=== PATIENT | male | born 1970 | race Caucasian/White ===

== ENCOUNTER → 2017-06-19 | Outpatient (CLI) | payer BC ==
[~2017-06-19] MED LIST: OPTIRAY 320 IV PRN
[2017-06-19 16:09] LABS: ISTAT CREATININE 0.8 mg/dl (0.6-1.3); ISTAT HEMOGLOBIN 16.3 g/dl (14.0-18.0); ISTAT IONIZED CALCIUM 1.17 mmol/l (1.12-1.32)
--- NOTE | 2017-06-19 23:35 | DIAGNOSTIC IMAGING REPORT ---
CT OF THE ABDOMEN AND PELVIS WITH AND WITHOUT CONTRAST RENAL PROTOCOL CLINICAL HISTORY: Renal lesion. Renal infarct. COMPARISON STUDY: CT of the abdomen and pelvis May 06, 2016 and May 30, 2016. TECHNIQUE: Initially, axial unenhanced images through the abdomen and pelvis were obtained. Portal venous phase imaging of the abdomen was performed following intravenous injection of 116 cc Optiray 320 IV. Finally, 5 minute delayed phase imaging of the abdomen and pelvis was performed. A dose lowering technique was utilized adhering to the principles of ALARA. CT DOSE: 2307.37 mGycm FINDINGS: No renal, ureteral or bladder calculi are present. There is no hydronephrosis or hydroureter. No upper tract urothelial lesions are identified. Note is again made of volume loss with cortical calcification involving the lower pole of the left kidney. Note is made of a 4.8 x 3.1 cm nonenhancing wedge-shaped focus within the mid to lower pole of the left kidney. This is similar in size to a CT of May 30, 2016. A 7 mm hypodense right renal lesion is too small to characterize but is likely benign. Fatty infiltration of the liver is noted. The spleen, adrenal glands and pancreas are normal. There is no evidence for a bowel obstruction. The appendix is normal. No lesions are identified within the bladder although the nondependent aspect the bladder is unopacified. No suspicious osseous lesions are present. IMPRESSION: 1. No significant change in the nonenhancing 4.8 x 3.1 cm wedge-shaped left renal focus since exam of May 30, 2016. Associated mild volume loss and cortical calcification. The appearance favors an old renal infarct although a benign cystic lesion could appear similar. No solid renal lesions. 2. No urinary calculi or hydronephrosis. 3. Fatty liver. Electronically signed by: Josue Browning M.D. 06/19/2017 11:34 PM Dictated Date/Time: 06/19/2017 5:18 PM
== END | disposition home or self-care (01) ==
LOC: C.CTS 15:03
PROVIDERS: ATTEND Urology
DX: N28.9 Disorder of kidney and ureter, unspecified (principal); K76.0 Fatty (change of) liver, not elsewhere classified

== ENCOUNTER 2018-11-08 07:58 | Observation (INO) ==
--- NOTE | 2018-10-31 16:13 | Anesthesiology Consultation ---
Date of Service October 31, 2018 Assessment & Plan (1) Encounter for pre-operative examination: Plan: EKG AM DOS BSG AM DOS Chart Review Chart Review: Acceptable Risk for Surgery and Patient NOT seen in Pre Admission Testing History Surgery Operation Date: 11/08/18 09:50 Proposed Procedures p L5-S1 Discectomy - Bear Jara DO Height/Weight Height: 5 ft 9 in Weight: 117.934 kg Allergies Allergy/AdvReac Type Severity Reaction Status Date / Time metformin AdvReac Mild Diarrhea Verified 10/31/18 08:11 Medications Home Medications Medication Instructions Recorded Confirmed Last Taken amlodipine 5 mg PO QAM 10/23/18 10/31/18 Unknown cholecalciferol (vitamin D3) 2,000 unit PO QAM 10/23/18 10/31/18 Unknown [Vitamin D3] empagliflozin [Jardiance] 10 mg PO QAM 10/23/18 10/31/18 Unknown glimepiride 4 mg PO QAM 10/23/18 10/31/18 Unknown lisinopril 10 mg PO QAM 10/23/18 10/31/18 Unknown semaglutide [Ozempic] 0.5 mg SUBCUT WK 10/23/18 10/31/18 Unknown omega [id number] oil 1 cap PO QAM 10/31/18 10/31/18 Unknown turmeric root extract 500 mg PO QAM 10/31/18 10/31/18 Unknown Past Medical History Medical History Back pain of lumbosacral region with sciatica radiates to left leg Diabetes History of anal fissures History of skin cancer basal cell on face - Hypertension Kidney dysfunction states was told had left kidney renal infarction and decreased function; Found when s/s of kidney stones which did not have. Obesity Renal infarction LEFT. Per urology 07/05/17, 'no progression...essentially unchanged in 1 year...minimally symptomatic' Past Family History Family History Grandmother (Paternal) Family history of diabetes mellitus Past Surgical History Surgical History History of tonsillectomy Hx of eye surgery left eye corneal issue Social History Smoking Status: Never smoker Hx Alcohol Use: Yes Alcohol type: beer, wine and hard liquor alcohol intake frequency: a few times a month Hx Substance Use: No Testing Laboratory Results Laboratory Tests 10/30/18 10/30/18 10/30/18 14:12 14:12 14:12 WBC 7.53 Hgb 17.4 Hct 50.4 Plt Count 185 PT 10.1 INR 1.0 APTT 26.3 Sodium 138 Potassium 3.7 Chloride 104 Carbon Dioxide 26 BUN 12 Creatinine 0.92 Glucose 120 H
--- NOTE | 2018-11-07 11:45 | History and Physical Report ---
DATE OF ADMISSION: 11/08/2018 CHIEF COMPLAINT: Back and lower extremity difficulty, disc herniation lumbar spine, increasing pain, increasing neurological deficit, failure of conservative measures. Essentially incapacitated. PAST MEDICAL HISTORY: Obesity, hypertension, high cholesterol, chickenpox. PAST SURGICAL HISTORY: Tonsillectomy. ALLERGIES: Negative. FAMILY HISTORY: Stroke. SOCIAL HISTORY: He is , 2 children, 2 alcoholic drinks daily. No tobacco. Active lifestyle. REVIEW OF SYSTEMS: Twelve system review is negative for fevers, sweats, chills. Ear, nose and throat negative. Denies chest pain, palpitations. Denies asthma, wheezing, shortness of breath. Denies nausea, vomiting. There is joint pain, weakness and stiffness. MEDICATIONS: Lisinopril and a medication for diabetes mellitus. PHYSICAL EXAMINATION: GENERAL: He is 5' 9", 270. He is in distress. He has back and lower extremity difficulty. VITAL SIGNS: Blood pressure 140/80, pulse 80, respiration 16. HEENT: Pupils react to light and accommodation. Ear, nose and throat clear. CARDIAC: Normal S1, S2, no ectopy, no skipped beats. LUNGS: Clear. ABDOMEN: Soft, nontender, bowel sounds present. NEUROLOGIC: He is alert, oriented and cooperative. Skin is intact. Vascular structures intact. He has significant pain with straight leg raising. He has pain with percussion. He has decreased Achilles reflex. IMAGES: Demonstrated disc herniation, lumbar spine. PLAN: Lumbar spine discectomy L5-S1.
[~2018-11-08 07:58] MED LIST changes: +CEFAZOLIN 2000MG 2,000 MG/15 ML SYR IV SCH; -OPTIRAY 320 IV PRN; +SODIUM CHLORIDE 0.9% 1000ML IV SCH
[2018-11-08] MEDS: LR 500ML BOLUS, THEN 15ML/HR IV SCH ×4 (08:57→14:10)
[2018-11-08] MEDS ORDERED: VANCOMYCIN HCL 1000MG/20ML VIAL ONE (10:07)
[2018-11-08] MEDS ORDERED: THROMBIN FOR SOLN 20000 UNIT KIT ONE (10:07)
[2018-11-08] MEDS ORDERED: GELATIN SPONGE SZ 100 ONE (10:07)
[2018-11-08] MEDS ORDERED: BACITRACIN INJ 50,000 UNIT VIAL ONE (10:08)
[2018-11-08] MEDS ORDERED: PROPOFOL IV EMULSION 10 MG/ML 20 ML VIAL IV ONE (10:10)
[2018-11-08] MEDS ORDERED: LIDOCAINE HCL 2% 2 ML VIAL/AMP(20MG/ML) INFIL ONE (10:10)
[2018-11-08] MEDS ORDERED: NEOSTIGMINE METHYLSULFATE 5 MG/5 ML SYR ONE (10:10)
[2018-11-08] MEDS ORDERED: DEXAMETHASONE SOD INJ 4 MG/ML VIAL ONE (10:10)
[2018-11-08] MEDS ORDERED: ROCURONIUM BROMIDE 10 MG/ML 5 ML VIAL ONE (10:10)
[2018-11-08] MEDS ORDERED: ONDANSETRON INJ 2 MG/ML 2 ML VIAL ONE (10:10)
[2018-11-08] MEDS ORDERED: GLYCOPYRROLATE 0.2 MG/ML VIAL ONE (10:10)
[2018-11-08] MEDS ORDERED: MIDAZOLAM HCL 1 MG/ML 2ML VIAL ONE (10:10)
[2018-11-08] MEDS ORDERED: fentaNYL citrate 100 MCG/2 ML VIAL ONE ×2 (10:11→11:09)
[2018-11-08] MEDS ORDERED: BUPIVACAINE/EPINEPHRINE 0.5% MPF 1:200,000 30 ML VIAL ONE (10:12)
--- NOTE | 2018-11-08 10:26 | History & Physical Bridge Note ---
Date of Service November 08, 2018 History & Physical Bridge Note I have examined the patient, reviewed the History & Physical and in the interval since the performance of the History & Physical I have noted the following changes of clinical significance: no changes noted
[2018-11-08] MEDS ORDERED: ATROPINE SULFATE 0.1 MG/ML 10ML SYR IV PRN (10:30)
[2018-11-08] MEDS ORDERED: HYDROmorphone INJ 2 MG/ML SYR/VIAL IV PRN (10:30)
[2018-11-08] MEDS ORDERED: ePHEDrine sulfate 50 MG/ML AMP IV PRN (10:30)
[2018-11-08] MEDS ORDERED: HYDROmorphone INJ 2 MG/ML SYR/VIAL ONE (11:29)
--- NOTE | 2018-11-08 11:38 | Fluoroscopy Report ---
FL spine 1V any level CLINICAL HISTORY: L5-S1 DISCECTOMY COMPARISON STUDY: Outside conventional radiographic study dated 10/19/2018 FLUOROSCOPY TIME: 2 seconds. NUMBER OF FLUOROSCOPIC IMAGES: 1 FINDINGS: A single fluoroscopic spot film reveals surgical instruments at the L5-S1 level posteriorly . IMPRESSION: Surgical instruments at the L5-S1 level posteriorly Electronically signed by: Andres Gold M.D. 11/08/2018 11:37 AM
--- NOTE | 2018-11-08 12:03 | Post Operative Brief Note ---
Immediate Post Op Note v1 Date of Surgery November 08, 2018 Pre & Post Diagnosis Operation Date: 11/08/18 10:10 Pre-Op Diagnosis: LUMBAR DISC HERNIATION L5-S1 Post-Op Diagnosis: LUMBAR DISC HERNIATION L5-S1 Procedure Operation Date: 11/08/18 10:10 Actual Procedures p L5-S1 Discectomy(Not Applicable) - Bear Jara DO Surgeon Bear Jara DO Employment Attorney mari Estimated Blood Loss 20 Findings Consistent with Post-Op Diagnosis Drains Hemovac Drain
--- NOTE | 2018-11-08 13:06 | Operative Report ---
DATE OF OPERATION: 11/08/2018 PREOPERATIVE DIAGNOSIS: Disk herniation, lumbar spine, L5-S1. POSTOPERATIVE DIAGNOSIS: Disk herniation, lumbar spine, L5-S1. PROCEDURE: Included lumbar spine diskectomy, foraminotomy, partial facetectomy, L5-S1. SURGEON: Bear Jara DO. HEAVY LIFT RIGGER: John Whyte PA-C. COMPLICATIONS: None. BLOOD LOSS: Less than 20. DESCRIPTION OF PROCEDURE: Patient was taken to the operating room. A general intubated anesthetic provided to the patient, placed prone, scrubbed, prepped and draped sterile. We made a skin incision, fascial incision, came right down on the L5-S1 interspace. Did upgoing laminotomy, downgoing foraminotomy, readily found the descending nerve root. This was retracted in a medial direction. We completely took out the disk material that was embedded into the nerve root. We completed the foraminotomy, looked for the free fragments, it was free. We irrigated and closed in layers over vancomycin powder. Sterile dressings applied. Patient then extubated to PACU stable. No apparent complications. I attest to the content of the Intraoperative Record and any orders documented therein. Any exception s are noted below.
[2018-11-08] MEDS ORDERED: OXYCODONE HCL IR 5 MG TAB (IMMEDIATE RELEASE) PO PRN (13:42)
[2018-11-08] MEDS ORDERED: ONDANSETRON INJ 2 MG/ML 2 ML VIAL IV PRN (13:42)
[2018-11-08] MEDS ORDERED: MAGNESIUM HYDROXIDE SUSP 30 ML UDC PO PRN (13:42)
[2018-11-08] MEDS ORDERED: HYDROmorphone INJ 1 MG/ML SYRINGE IV PRN ×2 (13:42)
--- NOTE | 2018-11-08 14:46 | Anesthesiology Progress Note ---
Date of Service November 08, 2018 Anesthesia Post Procedure Vital Signs Vital Signs: Temp Pulse Pulse Resp BP Pulse Ox 11/08/18 14:24 37 C 19 126/80 98 11/08/18 13:52 72 16 127/76 97 11/08/18 13:25 36.8 C 77 20 137/85 97 11/08/18 13:05 36.8 C 64 16 147/83 H 92 11/08/18 12:55 64 16 148/79 H 92 11/08/18 12:45 63 15 148/84 H 92 11/08/18 12:35 68 15 147/84 H 96 11/08/18 12:25 77 17 148/86 H 98 11/08/18 12:19 36.4 C L 71 19 149/81 H 97 11/08/18 08:55 36.6 C 88 20 137/94 96 Pain Intensity Left Leg: Pain Intensity: 0 Notes Mental Status: alert / awake / arousable Patient Amnestic to Procedure: Yes Nausea / Vomiting: adequately controlled Pain: adequately controlled Airway Patency, RR, SpO2: stable & adequate BP & HR: stable & adequate Hydration State: stable & adequate Anesthetic Complications: no major complications apparent and Pt Satisfied with anesthetic care
[2018-11-08] MEDS: SODIUM CHLORIDE 0.9% 1000ML 1,000 ML IV SCH (14:52)
[2018-11-08] MEDS: ACETAMINOPHEN 1,000 MG/100 ML VIAL IV SCH (18:47)
[2018-11-08] MEDS: CEFAZOLIN 2000MG 2,000 MG/15 ML SYR IV SCH (18:47)
[2018-11-08] MEDS ORDERED: TRULICITY 1.5 MG/0.5 ML SQ SCH (19:30)
[2018-11-08] MEDS: AMLODIPINE BESYLATE 5 MG TAB PO SCH (21:01)
[2018-11-08] MEDS: LISINOPRIL 10 MG TAB PO SCH (21:01)
[2018-11-08] MEDS: DOCUSATE SODIUM 100 MG CAP PO SCH (21:02)
[2018-11-08] MEDS: OXYCODONE HCL IR 5 MG TAB (IMMEDIATE RELEASE) PO PRN (21:46)
[2018-11-09] MEDS: SODIUM CHLORIDE 0.9% 1000ML 1,000 ML IV SCH (02:10)
[2018-11-09] MEDS: ACETAMINOPHEN 1,000 MG/100 ML VIAL IV SCH ×2 (02:10→09:42)
[2018-11-09] MEDS: CEFAZOLIN 2000MG 2,000 MG/15 ML SYR IV SCH ×2 (02:11→09:40)
[2018-11-09] MEDS ORDERED: GLIMEPIRIDE 2 MG TAB PO SCH (07:30)
[2018-11-09] MEDS: DOCUSATE SODIUM 100 MG CAP PO SCH (08:42)
[2018-11-09] MEDS ORDERED: CHOLECALCIFEROL 1,000 UNITS TAB PO SCH (09:00)
[2018-11-09] MEDS ORDERED: JARDIANCE 10 MG PO SCH (09:00)
[2018-11-09] MEDS ORDERED: TURMERIC ROOT EXTRACT 500 MG PO SCH (09:00)
[2018-11-09] MEDS ORDERED: OMEGA-3 (PURIFIED FISH OIL) 1 GM CAP PO SCH (09:00)
[2018-11-09] MEDS: LISINOPRIL 10 MG TAB PO SCH (09:40)
[2018-11-09] MEDS: AMLODIPINE BESYLATE 5 MG TAB PO SCH (09:41)
--- NOTE | 2018-11-09 14:37 | Discharge Summary ---
HISTORY OF PRESENT ILLNESS: He is alert and oriented, minimal complaints of pain. Leg pain improved, still numbness and tingling. No chest pain, shortness of breath, or confusion. He has had an uneventful postop course. ASSESSMENT: Status post diskectomy, 1 level, lumbar. PLAN: Home rest today, take it easy. Careful with bending, stooping, lifting. Instructions are on the chart. Prescriptions on the chart. If he needs, to call for a followup appointment in approximately 12-14 days.
[2018-11-09] MEDS: OXYCODONE HCL IR 5 MG TAB (IMMEDIATE RELEASE) PO PRN (14:39)
--- NOTE | 2018-11-09 17:31 | Anesthesiology Progress Note ---
Date of Service November 09, 2018 Anesthesia Post Procedure Vital Signs Vital Signs: Temp Pulse Resp BP Pulse Ox 11/09/18 08:55 37.0 C 88 18 153/83 H 98 11/09/18 07:01 37.0 C 88 18 153/83 H 98 11/09/18 04:00 36.9 C 81 18 105/65 98 11/08/18 22:49 37.1 C 102 H 17 155/98 H 95 11/08/18 21:42 37.0 C 107 H 18 165/90 H 95 11/08/18 19:28 37.1 C 113 H 16 165/88 H 95 Pain Intensity Left Leg: Pain Intensity: 2 Notes Mental Status: alert / awake / arousable and participated in evaluation Patient Amnestic to Procedure: Yes Nausea / Vomiting: adequately controlled Pain: adequately controlled Airway Patency, RR, SpO2: stable & adequate BP & HR: stable & adequate Hydration State: stable & adequate Anesthetic Complications: no major complications apparent and Pt Satisfied with anesthetic care
[2018-11-10] MEDS ORDERED: BISACODYL 5 MG TABEC PO PRN (06:00)
== END 2018-11-09 15:33 | disposition home or self-care (01) ==
LOC: 3E 07:58 → ASU 07:58